=== PATIENT | female | born 1965 | race Caucasian/White ===

== ENCOUNTER 2016-12-04 06:04 | Day surgery (SDC) | payer OTHER ==
--- NOTE | 2016-11-13 07:45 | PCM.HPANE ---
Patient Data Surgeon Admitting Provider: Attending Provider:Huber Rios MD Primary Care Physician:Dexter Other Provider:Jennifer Medina Anesthesia Reason for Visit Right Rotator Cuff Tear Ht/WT & BMI Height (Feet): 5 Height (Inches): 9 Weight (Kilograms): 71.03 Body Mass Index 23.00 Allergies Coded Allergies: Penicillins (Verified Allergy, Severe, ANAPHYLAXIS, 11/06/16) Past Anesthesia History Anesthesia History: Denies:: Anesthesia Reactions, Malignant Hyperthermia Diabetes History Hx Diabetes?: No MRSA MRSA: No History History of ENT Problems?: Yes HEENT History: Positive for:: Sinus Problem (ALLERGIC RHINITIS) Hx of Heart Problems?: Yes Cardiovascular History: Denies:: Heart Murmur Hypertension (HYPERLIPIDEMIA) Hx of Respiratory Problem?: No Respiratory History: Denies:: Use of C-PAP Machine Hx Neurologic Problems?: Yes Neurological History: Positive for:: CVA (HX TRAUMATIC LT CEREBRUM HEMORRHAGE) Hx of GI Problems?: Yes Hx of Problems?: No Female Hx: Positive for:: Pelvic Inflammatory (HX GENITAL HSV) Denies:: Currently Skin History: Denies:: History Skin Disorders? Pressure Ulcers Hx Musculoskeletal Problems?: Yes Musculoskeletal History: Positive for:: Musculoskeletal Trauma (RT ROTATOR CUFF TEAR=CURRENT PROBLEM) Hx of Psycho/Social Problems?: Yes Psycho Social History: Positive for:: Anxiety Hx Depression Hx Surgeries?: Yes (SUZAN/BSO) Hx Any Other Health Problems?: Yes Other History: Denies:: Cancer Endocrine Disease Thyroid Disease Hx Diabetes: No Have You Smoked inLast 12 mo: YesApprox How Many Cigarettes/day: 1/2 PPD Stop/Bang S-Snoring: Do You Snore Loudly: No T-Tired: feel tired, fatigued: No O-Obsered: Observed not breath: No P-Blood Pressure: treated: No B- Body Mass Index > 35 kg/m2: No A- Age over 50: Yes N- Neck Large Circumference: No G- Gender Male: No AUBREY Total Score: 1 Risk Assessment Category Category 1A: Patient has history of documented sleep apnea, and HAS NOT received any narcotic, sedative or anesthesia administration during this stay. Category 1B: Patient has history of documented sleep apnea, and HAS received any narcotic , sedative or anesthesia administration during this stay Category 2: Patient has SUSPECTED Obstructive Sleep Apnea, and HAS received any narcotic , sedative or anesthesia administration during this stay. Category 3: Patient has SUSPECTED Obstructive Sleep Apnea and HAS NOT received narcotic, sedative or anesthesia administration during this stay. Category 4: Outpatient in Procedural Areas with known sleep apnea or who screen positive for High Risk via the STOP/BANG questionnaire. Plan Impression Patient chart reviewed, patient interviewed and anesthestic plan with risks, benefits, and alternatives discussed, and informed consent obtained. Kay Fried MD November 13, 2016 07:45
[~2016-12-04] VITALS: Ht 175.3 cm; Wt 71.0 kg
[2016-12-04] VITALS (8 sets, daily range): BP systolic 93–117; BP diastolic 62–100; PULSE 60–72; RESP 14–19; O2SAT 95–97
[~2016-12-04 06:04] MED LIST: CITA20TA11 PO; Clindamycin 600 mg/50 mL D5W IV ONE; ESTR1TAB24 PO; Lactated Ringer's 1,000 ML IV SCH; OXYC5TAB72 PO
[2016-12-04] MEDS ORDERED: Lidocaine PF 1% 30 mL Inj ONE (06:05)
[2016-12-04] MEDS ORDERED: Rocuronium 10 mg/mL 5 mL Inj ONE (06:05)
[2016-12-04] MEDS ORDERED: Propofol 10,000 mCg/mL 20 mL Inj ONE (06:05)
[2016-12-04] MEDS ORDERED: Dexamethasone 4 mg/mL Inj ONE (06:05)
[2016-12-04] MEDS ORDERED: Ondansetron 2 mg/mL 2 mL Inj ONE (06:05)
[2016-12-04] MEDS ORDERED: EPHEDrine/NS 5 mg/mL 5 mL Syringe ONE (06:05)
[2016-12-04] MEDS ORDERED: fentaNYL-PF 50 mCg/mL 2 mL Inj ONE (06:05)
[2016-12-04] MEDS ORDERED: Lactated Ringer's 1,000 ML IV ONE ×2 (07:04→10:25)
[2016-12-04] MEDS ORDERED: Lactated Ringer's 1,000 ML IV SCH (07:23)
[2016-12-04] MEDS ORDERED: Lactated Ringer's 500 ML IV PRN (07:23)
--- NOTE | 2016-12-04 07:23 | PCM.HPANE ---
Patient Data Date of Service: Dec 04, 2016 (0720) Surgeon Admitting Provider: Attending Provider:Huber Rios MD Primary Care Physician:Dexter Other Provider:Jennifer Medina Anesthesia Reason for Visit Right Rotator Cuff Tear Ht/WT & BMI Height (Feet): 5 Height (Inches): 9.00 Weight (Kilograms): 71.030 Body Mass Index 23.00 Allergies Coded Allergies: Penicillins (Verified Allergy, Severe, ANAPHYLAXIS, 11/29/16) Past Anesthesia History Anesthesia History: Denies:: Anesthesia Reactions, Malignant Hyperthermia Diabetes History Hx Diabetes?: No MRSA MRSA: No Medications Home Meds Incl Beta Juan Ramon: No Reported Medications oxyCODONE 5 Mg Tablet5 Mg PO Q4H PRN For Pain Ref 0 11/29/16 Estradiol 1 Mg Tablet1 Mg PO DAILY Ref 0 11/29/16 Citalopram 20 Mg [id number] Mg PO DAILY Ref 0 11/29/16 History History of ENT Problems?: Yes HEENT History: Positive for:: Sinus Problem (ALLERGIC RHINITIS) Denture Type: None Teeth Condition: Within Normal Limits Hx of Heart Problems?: Yes Cardiovascular History: Denies:: Heart Murmur Hypertension (HYPERLIPIDEMIA) Hx of Respiratory Problem?: No Respiratory History: Denies:: Use of C-PAP Machine Hx Neurologic Problems?: Yes Neurological History: Positive for:: CVA (HX TRAUMATIC LT CEREBRUM HEMORRHAGE) Hx of GI Problems?: Yes Hx of Problems?: No Female Hx: Positive for:: Pelvic Inflammatory (HX GENITAL HSV) Skin History: Denies:: History Skin Disorders? Pressure Ulcers Hx Musculoskeletal Problems?: Yes Musculoskeletal History: Positive for:: Musculoskeletal Trauma (RT ROTATOR CUFF TEAR=CURRENT PROBLEM) Hx of Psycho/Social Problems?: Yes Psycho Social History: Positive for:: Anxiety Hx Depression Hx Surgeries?: Yes (SUZAN/BSO) Hx Any Other Health Problems?: Yes Other History: Denies:: Cancer Endocrine Disease Hospitalization Thyroid Disease Hx Diabetes: No Smoking Status: Current Every Day Smoker Have You Smoked inLast 12 mo: YesApprox How Many Cigarettes/day: 1/2 PPD Stop/Bang S-Snoring: Do You Snore Loudly: No T-Tired: feel tired, fatigued: No O-Obsered: Observed not breath: No P-Blood Pressure: treated: No B- Body Mass Index > 35 kg/m2: No A- Age over 50: Yes N- Neck Large Circumference: No G- Gender Male: No AUBREY Total Score: 1 AUBREY Risk Assessment: Low Risk, <3 Yes Risk Assessment Category Category 1A: Patient has history of documented sleep apnea, and HAS NOT received any narcotic, sedative or anesthesia administration during this stay. Category 1B: Patient has history of documented sleep apnea, and HAS received any narcotic , sedative or anesthesia administration during this stay Category 2: Patient has SUSPECTED Obstructive Sleep Apnea, and HAS received any narcotic , sedative or anesthesia administration during this stay. Category 3: Patient has SUSPECTED Obstructive Sleep Apnea and HAS NOT received narcotic, sedative or anesthesia administration during this stay. Category 4: Outpatient in Procedural Areas with known sleep apnea or who screen positive for High Risk via the STOP/BANG questionnaire. Exam Exam Vital Signs Vital Signs Date Time Temp Pulse Resp B/P Pulse Ox O2 Delivery O2 Flow Rate FiO2 12/04/16 06:49 36 67 18 108/74 95 Room Air General Appearance: Alert, Oriented X3, Cooperative HEENT/AIRWAY: MP 1 Lungs: Clear to Auscultation Heart: Exam Unremarkable Meds/Labs/Diagnostics Admission Meds Current Medications Lactated Ringer's (Lr) 1,000 ml @ ud STK-MED ONCE IV Last administered on 12/04t 07:04; Start 12/04/16 at 07:04; Stop 12/04/16 at 07:05; Status DC Plan Impression Patient chart reviewed, patient interviewed and anesthestic plan with risks, benefits, and alternatives discussed, and informed consent obtained. NPO per Anesth. Guidelines: Yes ASA Physical Status: ASA2 Mod Systemic Disease Anesthetic Plan: GA, Regional Block (interscalene) Bene/Risks/Altern/Consents: Yes HP Complete Prior to Induction: Yes Erik Stallworth MD Dec 04, 2016 07:23
[2016-12-04] MEDS ORDERED: HYDROmorphone 1 mg/mL Inj IVPUSH PRN (07:25)
[2016-12-04] MEDS ORDERED: Phenylephrine 10,000 mCg/mL Inj IVPUSH PRN (07:25)
[2016-12-04] MEDS ORDERED: Dexamethasone 4 mg/mL Inj IVPUSH PRN (07:25)
[2016-12-04] MEDS ORDERED: Ketorolac 15 mg/mL Inj IVPUSH ONE (07:25)
[2016-12-04] MEDS ORDERED: Ondansetron 2 mg/mL 2 mL Inj IVPUSH PRN (07:25)
[2016-12-04] MEDS ORDERED: EPHEDrine Sulfate 50 mg/mL Inj IVPUSH PRN (07:25)
[2016-12-04] MEDS ORDERED: MetoCLOpramide 5 mg/mL 2 mL Inj IVPUSH PRN (07:25)
[2016-12-04] MEDS ORDERED: oxyCODONE-Acetamin 5-325 mg Tablet PO PRN (07:25)
[2016-12-04] MEDS ORDERED: fentaNYL-PF 50 mCg/mL 2 mL Inj IVPUSH PRN (07:25)
--- NOTE | 2016-12-04 09:54 | PCM.ORTHOP ---
Orthopedic Operative Report Date of Service: Dec 04, 2016 (0720) Pre Operative Diagnosis Right shoulder rotator cuff tear, impingement syndrome, acromioclavicular joint arthritis Post Operative Diagnosis Right shoulder rotator cuff tear, clinical degenerative arthritis, impingement syndrome, biceps tenosynovitis Procedure Right shoulder arthroscopy, rotator cuff repair, subacromial decompression, distal clavicle excision, biceps tenodesis, extensive debridement Surgeon Surgeon: Huber Rios MD Assistants: Paulina Hamilton Indication for Procedure Right shoulder rotator cuff tear Findings Per dictation Details of Procedure LAST TRIMMER SURGEON: During the operation, the services of physician surgical dental assistant were medically indicated and necessary to provide exposure of the operative site for the surgical procedure and to maintain the limb in a proper position to carry out the operation safely and efficiently. Without the qualified assistant producer being present, it would have extended the operative procedure and made the procedure technically more difficult to perform. INDICATIONS: The patient is a Renee Weaver who is a 51-year-old female with a right shoulder rotator cuff tear. The risks, benefits, and alternatives of surgery were discussed with the patient. The risks included but were not limited to infection, bleeding, damage to vessels and nerves, loss of motion, continued pain, complications due to anesthesia including myocardial infarction , stroke, , etc. The patient stated understanding of the nature of the surgical procedure and gave written and verbal consent to proceed. PROCEDURE: The patient was brought into the operating room and placed supine on the operating room table. A supraclavicular block was placed in the right shoulder for postoperative pain management, followed by the administration of general anesthesia. . The patient was then placed into the lateral decubitus position with the right side up. An axillary role was placed and the legs were padded as necessary to avoid pressure points. The patient was maintained in position with a beanbag evacuation device. A thorough examination of the right shoulder under anesthesia was performed. The patient had 170 degrees of forward elevation and 140 degrees of abduction. In 90 degrees of abduction there was 90 degrees of external rotation and 90 degrees of internal rotation. The shoulder was stable to load-shift testing. The right upper extremity was then prepped and draped in the usual fashion. The arm was suspended with a well-padded sleeve with eight/ten pounds of balanced suspension in the arthroscopic position. A standard posterior portal was made inferior and medial to the posterior corner of the acromion. The incision was made only through skin. The trocar was advanced through the soft tissue with a blunt-tipped obturator. This was inserted into the glenohumeral joint without difficulty. The 4 mm arthroscope was placed through the cannula and attached to the video monitor system. Inflow was achieved using the arthroscopic pump. The pressure was maintained at 35-40 mm of mercury throughout the entire procedure. Once the arthroscope confirmed visualization within the shoulder joint, it was advanced anteriorly into the rotator interval beneath the biceps tendon. A Wissinger shabana was then used to create the anterior portal from inside-out. A second anterior stab wound incision was made only through skin and an anterior cannula was placed. A routine arthroscopic survey was begun. An extensive debridement was then performed of unstable cartilage, tendon, degenerative labral tissue , all debrided back to stable tissue Survey: Biceps tendon synovitis, anterior labral tearing with fraying,[id number] RTC tear [id number], extensive synovitis The arm was then placed in the bursoscopy position. Complex surgical procedure: This was an extremely complex surgical procedure which took approximately 30-40 % longer to complete than a standard repair. Without the use of a qualified assistant infant teacher, this surgical procedure would have taken even considerably longer and been unable to be performed arthroscopically. Spencer procedure: Within the subacromial space there was marked fraying on the undersurface of the coracoacromial ligament consistent with impingement. A decision was thus made to proceed with arthroscopic subacromial decompression. Using an RF wand and a motorized shaver the coracoacromial ligament was recessed from the anterior acromial edge. An orientation trough was made along the lateral margin of the acromion, from the anterior corner back to the posterior margin of the AC joint. A sequential subacromial smoothing was carried out, removing approximately 5 mm of bone corresponding to the preoperative radiographs. Once completed, the AC joint capsule was opened. There was inferior spurring as well as synovitis and arthritic changes at the AC joint and a decision was made to proceed with distal clavicle excision. Using a motorized bur working initially from posteriorly and then anteriorly, the outer 10 mm of the distal clavicle were excised. The arthroscope was then positioned anteriorly within the AC resection site confirming an excellent level of resection. Through a separate fascial incision, an extensive debridement of the subacromial space was then performed consisting of frayed CA ligament , inflamed bursal tissue, bursal sided tendon fraying. Single anchor supraspinatus repair Attention was then directed to the rotator cuff repair. Using the motorized shaver from both the anterolateral portal and the posterior portal, the free edge of rotator cuff was debrided. The anatomic neck of the tuberosity was then gently abraded, using the motorized shaver and exposing good bone for healing. Via an accessory anterolateral portal, a triple-loaded anchor was inserted, with excellent fixation purchase. The three stitches were then transported across the rotator cuff using a shuttling technique, spacing the sutures equidistantly. Once the sutures were all passed, they were sequentially tied, using SMC knots and alternating half-hitches, which gave excellent loop and knot security. This reduced the rotator cuff back to the anatomic neck. A microfracture was then performed laterally on the tuberosity creating a crimson duvet to aid in tendon healing. The previously tenotomized biceps tendon which was tagged with a stitch to preserve tension intra- articularly was tenodesed to the anterior limb of the rotator cuff repair. The arm was placed through range of motion and the rotator cuff and humeral head moved well as a unit. There was no further evidence for impingement. The subacromial space was irrigated with an additional 500 mL lactated Ringer solution. Excess fluid was drained. The arm was placed through a range of motion and the rotator cuff and humeral head moved well as a unit. There was no further evidence of impingement. The subacromial space was irrigated with an additional liter of lactated Ringer s solution and excess fluid was drained. The arthroscopic portals were closed with #4-0 Nylon and Steri-Strips. A dry sterile dressing was applied, followed by a neutral rotation sling. The patient was awakened in the operating room and transported to the recovery room in satisfactory condition. The patient appeared to tolerate the procedure well. There were no complications noted. Nonweightbearing to affected upper extremity. Please leave sling on at all times. You may remove sling 3 times a day to move the elbow wrist and fingers. Do not move your shoulder. Please keep the affected extremity elevated when possible. You may use ice and/or heat as needed for comfort. Follow-up in 2 weeks with me with 2-view xrays and for suture removal and Steri -Strip application, start physical therapy phase 1. Follow-up with me at 6 weeks, 12 weeks, 18 weeks with progression of physical therapy as per my protocol (please ask me for protocol if needed). Follow-up with me before full release at 5 months postop. Grafts, Implants: Implants-See Implant Record Complications There were no periprocedural complications identified. Condition Stable Anesthetic Administered: GA Catheters: None Output, Estimated Blood Loss: 5 Blood Admin during surgery: No Surgical Cast or Splint: Shoulder Immobilizer Surgical Specimen Removed: No Specimen sent to Pathology: No copies to: Huber Rios MD, Christopher L MD Dec 04, 2016 09:54
--- NOTE | 2016-12-04 09:58 | PCM.ANEP1 ---
Post Anesthesia PACU Phase 1 Assessment Vital Signs 76, 16, 98%, 103/69, 36.1 Vital Signs Date Time Temp Pulse Resp B/P Pulse Ox O2 Delivery O2 Flow Rate FiO2 12/04/16 06:49 36 67 18 108/74 95 Room Air Anesthetic Administered: GA Level of Alertness: Awake, talking ANDRADE's with Equal Strength: No Pain: No Nausea or Vomiting: No CV Function & Hydration Stable: Yes Airway Device: none Oxygen Delivery: Simple Mask Lungs: Clear to Auscultation Dermatome Level: Full Sensation Summary good block, uneventful GETA PACU Phase 2 Assessment Complications: No Follow up Care: No Patient Instructions Provided: N/A Erik Stallworth MD Dec 04, 2016 09:58
== END 2016-12-04 23:59 | disposition home or self-care (01) ==
LOC: SAS 06:04
PROVIDERS: ATTEND Orthopaedic Surgery
DX: M75.121 Complete rotator cuff tear or rupture of right shoulder, not specified as traumatic (principal); M75.41 Impingement syndrome of right shoulder; M67.911 Unspecified disorder of synovium and tendon, right shoulder; F32.9 Major depressive disorder, single episode, unspecified; F41.9 Anxiety disorder, unspecified; J30.9 Allergic rhinitis, unspecified; F17.210 Nicotine dependence, cigarettes, uncomplicated
CPT/HCPCS: 23430; 29824; 29826; 29827; 76942; C1713; J1100; J1885; J2250; J2405; J3010; J7120